=== PATIENT | female | born 1950 | race Caucasian/White ===

== ENCOUNTER → 2016-10-23 | Outpatient (CLI) | payer MEDICARE ==
[~2016-10-23] MED LIST: ALBUTEROL17 GM INH; ALPRAZOLAM PO; ALTACE PO; ALTACE10 MG PO; AMLODIPINE BESYL5 MG PO; ANTIVERT PO; APRESOLINE; APRESOLINE10 M1 PO; ASPIRIN EC81 M1 PO; ASPIRIN81 M1 PO; ASPIRIN81 MG PO; ASPIRINEC PO; CALCIUM + VITAM1 TAB PO; CALCIUM 500 +1 EAC2 PO; CIPRO PO; CLARITIN10 M2 PO; CLOPIDOGREL75 MG PO; COMBIVENT INH14.7 GM INH; COMBIVENT U/D3 M2; COMBIVENT14.7 GM INH; DELTASONE20 MG PO; FLAGYL PO; FORADIL12 MCG; FORADIL12 MCG INH; IMDUR PO; LEVAQUIN PO; MEDROL PO; NORVASC; NORVASC PO; PAXIL PO; PAXIL10 MG PO; PERCOCET5/325 PO; PHENERGAN PO; PHENERGAN12.5 MG PO; PHENERGAN25 M1 PO; PLAVIX PO; PRAVASTATIN SOD10 MG PO; PREDNISONE PO; PREVACID PO; PREVACID30 MG/BLIS PO; RAMIPRIL10 MG PO; RAMIPRIL5 MG PO; SPIRIVA18 MCG; SPIRIVA18 MCG INH; STRIVERDI RESPIM4 GM INH; TUSSIONEX PENN473 ML PO; ZITHROMAX PO; ZITHROMAX1 G/PKT PO; ZOFRAN ODT4 MG/UDTAB PO; ZYRTEC PO
--- NOTE | ~2016-10-23 | CR63 ---
[facility]. [facility] A Service of [facility] & [facility] RADIOLOGY TEXT RESULTS PATIENT: JACQUI GUTIÉRREZ LOCATION: [facility] : 46 UNIT #: [id number] AGE: [address]: Radha NaranjoP SEX: F ORDER DR: [id number] [place] [id number] O MR#: [id number] Acc #: [id number] NAME: JACQUI GUTIÉRREZ : 1950 SEX: F STUDY DATE/TIME: 10/23/2016 13:43 UNIT: [facility] ROOM: STUDY DESCRIPTION: CR Chest 2 View Attending Physician: Radha Naranjo A.P.R.N. Referring Physician: Radha Naranjo A.P.R.N. Ordering Physician: Radha Naranjo A.P.R.N. Primary Care Physician: Romina Cha M.D. MEDICAL IMAGING REPORT This report is preliminary unless electronic signature is present. EXAM PA and lateral chest HISTORY Shortness of air. Pain in knee posteriorly. Symptoms for 6 weeks. COMPARISON 09/06/2015 FINDINGS A PA and lateral view of the chest were obtained. The heart size and vascularity are normal and the lungs are clear. The bones are unremarkable. IMPRESSION No active disease. Dictated by... Zhang Bradley M.D. THIS IS AN ELECTRONICALLY VERIFIED REPORT Zhang Bradley M.D. at 10/24/2016 4:04 PM SHINE/jimmie TD: 10/24/2016 08:25 JOB #: [id number] MEDICAL IMAGING REPORT Page 1 of 1
--- NOTE | ~2016-10-23 | CR170 ---
[facility] A Service [facility] RADIOLOGY TEXT RESULTS PATIENT: JACQUI GUTIÉRREZ LOCATION: [facility] : 46 UNIT #: [id number] AGE: [address]: Radha Naranjo EMBOSSING CLERK SEX: F ORDER DR: [id number] [place] [id number] O MR#: [id number] Acc #: [id number] NAME: JACQUI GUTIÉRREZ : 1950 SEX: F STUDY DATE/TIME: 10/23/2016 13:43 UNIT: [facility] ROOM: STUDY DESCRIPTION: CR Knee 2 Views Rt Attending Physician: Radha Naranjo A.P.R.N. Referring Physician: Radha Naranjo A.P.R.N. Ordering Physician: Radha Naranjo A.P.R.N. Primary Care Physician: Romina Cha M.D. MEDICAL IMAGING REPORT This report is preliminary unless electronic signature is present. EXAM 2 views of the right knee. DATE OF EXAM 10/23/2016 HISTORY Right knee pain posterolaterally. Symptoms began 6 weeks ago. No known injury. History of surgery to the right knee 15 years ago. Pain and swelling. COMPARISON Right knee x-rays, 10/12/2009. FINDINGS No acute fracture or joint dislocation is seen. The knee joint spaces appear well maintained. No definite joint effusion. Multiple surgical clips are demonstrated within the lower posterior medial thigh. Vascular calcifications are also thought to be present within the lower right thigh, as well. No suspicious osteolytic or osteoblastic lesions are identified. IMPRESSION 1. No acute right knee findings. No significant osteoarthritic changes are identified. 2. Extensive surgical clips within the lower medial right thigh may represent changes of vein graft harvesting. 3. Calcific atherosclerosis. Dictated by... Jocy Abreu M.D. [facility] A Service [facility] RADIOLOGY TEXT RESULTS PATIENT: JACQUI GUTIÉRREZ LOCATION: [facility] : 46 UNIT #: [id number] AGE: [address]: Radha Naranjo SEX: F ORDER DR: THIS IS AN ELECTRONICALLY VERIFIED REPORT Jocy Abreu M.D. at 10/25/2016 7:25 AM KANU/nasra TD: 10/24/2016 15:32 JOB #: [id number] MEDICAL IMAGING REPORT Page 1 of 1
== END | disposition home or self-care (01) ==
LOC: SRAD 13:26
DX: R06.02 Shortness of breath (principal); M25.561 Pain in right knee; I70.90 Unspecified atherosclerosis; Z98.890 Other specified postprocedural states
CPT/HCPCS: 71020; 73560